=== PATIENT | male | born 1965 | race Caucasian/White ===

== ENCOUNTER → 2019-04-02 | Outpatient (CLI) | payer OTHER ==
--- NOTE | 2019-04-02 19:34 | REP ---
MAXILLOFACIAL CT WITHOUT CONTRAST: HISTORY: Acute recurrent sinusitis. Minimal mucosal thickening is present in the maxillary and ethmoid sinuses. A retention cyst is present in the left maxillary sinus. The remaining sinuses are clear. The osteomeatal units are patent. The middle and inferior nasal turbinates are partially paradoxical. There is very minimal deviation of the nasal septum to the right anteriorly and to the left posteriorly. A small spur is present arising from the right side of the nasal septum. The cribriform plate, medial dallas of the orbits and optic canals are intact. There is aeration of the anterior clinoid processes. The carotid canals form a segment of the posterolateral dallas of the sphenoid sinus. The left sphenoid sinus septum inserts into the left internal carotid canal wall. IMPRESSION:1. Sinus mucosal thickening as described above. 2. Left maxillary sinus retention cyst. Electronically Signed by Mike Flores MD 04/03/2019 07:58 A
== END ==
LOC: M RAD 16:23
PROVIDERS: ATTEND Specialist
DX: J01.01 Acute recurrent maxillary sinusitis (principal); J34.2 Deviated nasal septum

== ENCOUNTER → 2020-05-04 | Outpatient (CLI) | payer OTHER ==
--- NOTE | 2020-05-04 17:04 | REP ---
REASON: History of pleural effusions. I have no priors for comparison. Priors from an outside institution have not been made available for review. There is left CP angle blunting. There are multiple left lung nodules and a few right lung nodules. For the most part, they appear calcified. The right pleural angles is sharp. The heart is not enlarged. The osseous structures are within normal limits. IMPRESSION: Left pleural effusion, etiology uncertain. Multiple lung nodules, etiology uncertain. Followup with chest CT as recommended. Electronically Signed by Dick Miller DO 05/04/2020 07:10 P
== END ==
LOC: M RAD 13:22
PROVIDERS: ATTEND Internal Medicine Pulmonary Disease
DX: J90 Pleural effusion, not elsewhere classified (principal); R91.8 Other nonspecific abnormal finding of lung field

== ENCOUNTER → 2020-05-28 | Outpatient (CLI) | payer OTHER ==
--- NOTE | 2020-05-28 17:39 | REP ---
REASON: Followup pleural effusion. COMPARISON: 05/04/2020 Once again, there is left lower lobe opacity blunting the left CP angle. This has increased slightly compared to the prior exam. There are multiple pulmonary nodules scattered throughout the lung parker, status quo. The cardiomediastinal silhouette is unchanged. The osseous structures are unchanged. IMPRESSION: Evidence of slightly increased left pleural effusion and other findings as described above. Electronically Signed by Dick Miller DO 05/29/2020 11:21 A
== END ==
LOC: M RAD 14:22
PROVIDERS: ATTEND Nurse Practitioner Family
DX: J90 Pleural effusion, not elsewhere classified (principal); R91.8 Other nonspecific abnormal finding of lung field

== ENCOUNTER → 2020-09-09 | Outpatient (CLI) | payer OTHER ==
--- NOTE | 2020-09-10 05:26 | REPPI ---
INDICATION: J90 PLEURAL EFFUSION, NOT ELSEWHERE CLASSIFIED COMPARISON: 05/28/2020 TECHNIQUE: PA and lateral. FINDINGS: Opacity at the left base remains stable and may represent chronic pleural changes versus small pleural effusion. Clinical correlation is required. The remainder of the lung parker are well aerated and multiple scattered small nodules (left greater than right) are again noted which may reflect calcified and noncalcified granulomatous changes. Mediastinum and cardiac silhouette are normal. No pneumothorax. Skeletal structures intact. IMPRESSION: Suspected small left pleural effusion and or chronic changes along with scattered pulmonary nodules similar to prior examination. <Electronically signed by Tutu Sims > 09/10/20 [id number]
== END ==
LOC: M PLAIMG 13:02
PROVIDERS: ATTEND Internal Medicine Pulmonary Disease
DX: J90 Pleural effusion, not elsewhere classified (principal)

== ENCOUNTER → 2021-09-23 | Outpatient (CLI) | payer OTHER ==
--- NOTE | 2021-09-23 10:06 | REP ---
INDICATION: NICOTINE DEPENDENCE. COMPARISON: None. TECHNIQUE: Axial noncontrast images from the thoracic inlet to the upper abdomen using low-dose lung screening technique (LDCT). As per the protocol only lung window images were sent to the read station for interpretation. FINDINGS: There is evidence of biapical pleuroparenchymal scarring. There is an irregular somewhat spiculated appearing pleural base nodule in the left upper lobe which measures 1.9 cm. This may be causing pleural tenting. There is irregular pleural thickening throughout the left lower lung field. A small loculated pleural effusion on the left cannot be ruled out. There are numerous calcified granulomas. Grossly, the mediastinum and pulmonary angelica appear to be within normal limits. Grossly, the imaged upper abdomen and imaged osseous structures appear to be within normal limits. IMPRESSION: Abnormal left lung findings as described above. According to the revised Fleischner society criteria diagnostic contrast-enhanced CT examination of the chest is recommended since are no priors for comparison. <Electronically signed by Dick Miller > 09/23/21 1002
== END ==
LOC: M RAD 09:37
PROVIDERS: ATTEND Internal Medicine Pulmonary Disease
DX: R91.8 Other nonspecific abnormal finding of lung field (principal); F17.218 Nicotine dependence, cigarettes, with other nicotine-induced disorders

== ENCOUNTER → 2022-10-17 | Outpatient (CLI) | payer OTHER | LOC: M RAD 14:32 | PROVIDERS: ATTEND Internal Medicine Pulmonary Disease | DX: Z12.2 Encounter for screening for malignant neoplasm of respiratory organs (principal); F17.218 Nicotine dependence, cigarettes, with other nicotine-induced disorders ==

== ENCOUNTER → 2022-10-20 | Outpatient (REF) | payer OTHER | LOC: M LAB REF 16:50 | PROVIDERS: ATTEND Orthopaedic Surgery | DX: R22.32 Localized swelling, mass and lump, left upper limb (principal); L92.9 Granulomatous disorder of the skin and subcutaneous tissue, unspecified ==

== ENCOUNTER → 2022-11-23 | Outpatient (CLI) | payer OTHER ==
[~2022-11-23] MED LIST: ACTE20IN SC; ALBU90AE IH; ARAV20TA PO; EQL50TAB2 PO; FLOM0.4C39 PO; FLON1SPR; FOLI1TAB11 PO; PANT20TA6 PO; TREL1AER PO
[2022-11-23 11:52] LABS: BASO # 0.1 10^3/uL (0.0-0.2); BASO % 0.9 % (0.0-1.0); EOS # 0.3 10^3/uL (0.0-0.5); HEMATOCRIT 47.6 % (42.0-52.0); HEMOGLOBIN 15.7 g/dl (13.5-17.5); LYMPH # 1.4 10^3/uL (1.5-5.0); LYMPH % 24.3 % (24.0-44.0); MEAN CORPUSCULAR HEMOGLOBIN 32.3 pg (27.0-33.0); MEAN CORPUSCULAR VOLUME 97.9 fl (80.0-96.0); MONO # 0.8 10^3/uL (0.0-0.8); MONO % 14.7 % (2.0-8.0); NEUTROPHILS # 3.1 10^3/uL (1.5-8.5); NEUTROPHILS % 54.9 % (36.0-66.0); PLATELET COUNT, AUTOMATED 274 10^3/uL (150-450); RED BLOOD COUNT 4.86 10^6/uL (4.30-6.10); WHITE BLOOD COUNT 5.6 10^3/uL (4.0-10.0)
[2022-11-23 12:04] LABS: INR 0.86; PROTHROMBIN TIME 11.9 SECONDS (12.5-14.5)
[2022-11-23 12:05] LABS: PARTIAL THROMBOPLASTIN TIME 27.5 SECONDS (24.8-34.2)
[2022-11-23 12:18] LABS: LDH LACTATE DEHYDROGENASE 197 U/L (120-246)
[2022-11-23 12:20] LABS: ALBUMIN 3.4 G/DL (3.2-5.2); ALKALINE PHOSPHATASE 148 U/L (46-116); ALT/SGPT 19 U/L (7.0-40); AST/SGOT 19 U/L (<34); BILIRUBIN,TOTAL 0.3 MG/DL (0.3-1.2); BLOOD UREA NITROGEN 12 MG/DL (9-23); CALCIUM LEVEL 8.7 MG/DL (8.5-10.1); CARBON DIOXIDE LEVEL 28 MMOL/L (20-31); CHLORIDE LEVEL 106 MMOL/L (98-107); CREATININE FOR GFR 0.78 MG/DL (0.70-1.30); GLOMERULAR FILTRATION RATE > 60.0 (>56); GLUCOSE, FASTING 89 MG/DL (60-100); POTASSIUM SERUM 4.2 MMOL/L (3.5-5.1); SODIUM LEVEL 140 MMOL/L (136-145); TOTAL PROTEIN 6.5 G/DL (5.7-8.2)
[2022-11-23 13:26] LABS: PH BODY FLUID 7.469 UNITS (NOT ESTABLISHED); SOURCE, BODY FLUID pH PLEURAL
[2022-11-23 13:39] LABS: SOURCE, BODY FLUID ALBUMIN PLEURAL
[2022-11-23 13:41] LABS: APPEARANCE, BODY FLUID CLOUDY (CLEAR); PLEURAL FL COLOR YELLOW (COLORLESS); SOURCE, BODY FLUID PLEURAL
[2022-11-23 13:43] LABS: SOURCE, BODY FLUID GLUCOSE PLEURAL
[2022-11-23 13:45] LABS: LDH, BODY FLUID 378 U/L (NOT ESTABLISHED); SOURCE, BODY FLUID LDH PLEURAL
[2022-11-23 13:46] LABS: AMYLASE, BODY FLUID 34 U/L (NOT ESTABLISHED); SOURCE, BODY FLUID AMYLASE PLEURAL; SOURCE, BODY FLUID TOT PROTEIN PLEURAL; TOTAL PROTEIN, BODY FLUID 3.3 G/DL (NOT ESTABLISHED)
[2022-11-23 14:00] VITALS: BP 116/71
== END ==
LOC: M IRPRO 10:55
PROVIDERS: ATTEND Internal Medicine Pulmonary Disease
DX: J90 Pleural effusion, not elsewhere classified (principal); J95.811 Postprocedural pneumothorax

== ENCOUNTER → 2022-12-19 | Outpatient (CLI) | payer OTHER | LOC: M PLARAD 10:26 | PROVIDERS: ATTEND Internal Medicine Pulmonary Disease | DX: R91.8 Other nonspecific abnormal finding of lung field (principal) | CPT/HCPCS: 78815; A9552 ==

== ENCOUNTER → 2023-01-23 | Outpatient (CLI) | payer OTHER | LOC: M RAD 14:28 | PROVIDERS: ATTEND Internal Medicine Pulmonary Disease | DX: J90 Pleural effusion, not elsewhere classified (principal) ==

== ENCOUNTER → 2023-02-07 | Outpatient (CLI) | payer OTHER | LOC: M PLAIMG 13:54 | PROVIDERS: ATTEND Internal Medicine Pulmonary Disease | DX: J90 Pleural effusion, not elsewhere classified (principal) ==

== ENCOUNTER → 2023-03-01 | Outpatient (CLI) | payer OTHER ==
[2023-03-01 12:32] LABS: BASO # 0.1 10^3/uL (0.0-0.2); BASO % 1.2 % (0.0-1.0); EOS # 0.3 10^3/uL (0.0-0.5); HEMATOCRIT 47.5 % (42.0-52.0); HEMOGLOBIN 15.7 g/dl (13.5-17.5); LYMPH # 1.5 10^3/uL (1.5-5.0); LYMPH % 22.6 % (24.0-44.0); MEAN CORPUSCULAR HEMOGLOBIN 31.8 pg (27.0-33.0); MEAN CORPUSCULAR HGB CONC 33.1 g/dl (32.0-36.5); MEAN CORPUSCULAR VOLUME 96.3 fl (80.0-96.0); MONO # 0.8 10^3/uL (0.0-0.8); MONO % 12.4 % (2.0-8.0); NEUTROPHILS % 59.7 % (36.0-66.0); PLATELET COUNT, AUTOMATED 229 10^3/uL (150-450); RED BLOOD COUNT 4.93 10^6/uL (4.30-6.10); WHITE BLOOD COUNT 6.7 10^3/uL (4.0-10.0)
[2023-03-01 12:40] LABS: INR 0.91; PROTHROMBIN TIME 12.5 SECONDS (12.5-14.5)
[2023-03-01 12:41] LABS: PARTIAL THROMBOPLASTIN TIME 25.8 SECONDS (24.8-34.2)
[2023-03-01 13:00] LABS: LDH LACTATE DEHYDROGENASE 193 U/L (120-246)
[2023-03-01 13:02] LABS: ALBUMIN 3.4 G/DL (3.2-5.2); ALKALINE PHOSPHATASE 158 U/L (46-116); ALT/SGPT 15 U/L (7.0-40); AST/SGOT 19 U/L (<34); BILIRUBIN,TOTAL 0.5 MG/DL (0.3-1.2); BLOOD UREA NITROGEN 9 MG/DL (9-23); CALCIUM LEVEL 8.7 MG/DL (8.5-10.1); CARBON DIOXIDE LEVEL 24 MMOL/L (20-31); CHLORIDE LEVEL 110 MMOL/L (98-107); CREATININE FOR GFR 0.77 MG/DL (0.70-1.30); GLOMERULAR FILTRATION RATE > 60.0 (>56); GLUCOSE, FASTING 88 MG/DL (60-100); POTASSIUM SERUM 4.1 MMOL/L (3.5-5.1); SODIUM LEVEL 140 MMOL/L (136-145); TOTAL PROTEIN 6.6 G/DL (5.7-8.2)
[2023-03-01 15:30] LABS: APPEARANCE, BODY FLUID HAZY (CLEAR); PLEURAL FL COLOR RED (COLORLESS); SOURCE, BODY FLUID PLEURAL
[2023-03-01 15:45] VITALS: BP 132/77
[2023-03-01 16:08] LABS: PH BODY FLUID 7.388 UNITS (NOT ESTABLISHED); SOURCE, BODY FLUID pH PLEURAL
[2023-03-01 16:25] LABS: SOURCE, BODY FLUID ALBUMIN PLEURAL
[2023-03-01 16:30] LABS: SOURCE, BODY FLUID GLUCOSE PLEURAL; SOURCE, BODY FLUID TRIG PLEURAL; TRIGLYCERIDE, BODY FLUID 43 MG/DL (NOT ESTABLISHED)
[2023-03-01 16:31] LABS: AMYLASE, BODY FLUID 39 U/L (NOT ESTABLISHED); LDH, BODY FLUID 290 U/L (NOT ESTABLISHED); SOURCE, BODY FLUID AMYLASE PLEURAL; SOURCE, BODY FLUID LDH PLEURAL
[2023-03-01 16:32] LABS: CHOLESTEROL, BODY FLUID 65 MG/DL (NOT ESTABLISHED); SOURCE, BODY FLUID CHOL PLEURAL; SOURCE, BODY FLUID TOT PROTEIN PLEURAL; TOTAL PROTEIN, BODY FLUID 3.2 G/DL (NOT ESTABLISHED)
== END ==
LOC: M IRPRO 11:55
PROVIDERS: ATTEND Internal Medicine Pulmonary Disease
DX: J90 Pleural effusion, not elsewhere classified (principal)

== ENCOUNTER → 2023-04-05 | Outpatient (CLI) | payer OTHER | LOC: M RAD 14:11 | PROVIDERS: ATTEND Internal Medicine Pulmonary Disease | DX: J90 Pleural effusion, not elsewhere classified (principal) ==

== ENCOUNTER → 2023-05-26 | Outpatient (CLI) | payer OTHER ==
[~2023-05-26] MED LIST changes: +ISOVUE-370 76% 100ML VIAL As Ordered ONE
[2023-05-26 07:56] LABS: BASO # 0.1 10^3/uL (0.0-0.2); BASO % 0.8 % (0.0-1.0); EOS # 0.3 10^3/uL (0.0-0.5); EOS % 3.3 % (0.0-3.0); HEMATOCRIT 48.6 % (42.0-52.0); HEMOGLOBIN 16.5 g/dl (13.5-17.5); LYMPH # 1.2 10^3/uL (1.5-5.0); LYMPH % 16.3 % (24.0-44.0); MEAN CORPUSCULAR HEMOGLOBIN 32.6 pg (27.0-33.0); MONO # 1.3 10^3/uL (0.0-0.8); MONO % 17.2 % (2.0-8.0); NEUTROPHILS # 4.7 10^3/uL (1.5-8.5); NEUTROPHILS % 62.1 % (36.0-66.0); PLATELET COUNT, AUTOMATED 308 10^3/uL (150-450); RED BLOOD COUNT 5.06 10^6/uL (4.30-6.10); WHITE BLOOD COUNT 7.6 10^3/uL (4.0-10.0)
[2023-05-26 08:07] LABS: INR 0.88; PROTHROMBIN TIME 12.1 SECONDS (12.5-14.5)
[2023-05-26 08:28] LABS: BLOOD UREA NITROGEN 11 MG/DL (9-23); CALCIUM LEVEL 9.1 MG/DL (8.5-10.1); CARBON DIOXIDE LEVEL 30 MMOL/L (20-31); CHLORIDE LEVEL 108 MMOL/L (98-107); CREATININE FOR GFR 0.83 MG/DL (0.70-1.30); GLOMERULAR FILTRATION RATE > 60.0 (>56); GLUCOSE, FASTING 86 MG/DL (60-100); POTASSIUM SERUM 4.4 MMOL/L (3.5-5.1); SODIUM LEVEL 142 MMOL/L (136-145)
== END ==
LOC: M RAD 07:25
PROVIDERS: ATTEND Thoracic Surgery (Cardiothoracic Vascular Surgery)
DX: J90 Pleural effusion, not elsewhere classified (principal)
CPT/HCPCS: 36415; 71260; 80048; 85025; 85610; Q9967

== ENCOUNTER → 2024-02-07 | Outpatient (CLI) | payer OTHER ==
[~2024-02-07] MED LIST changes: -ISOVUE-370 76% 100ML VIAL As Ordered ONE
== END ==
LOC: M RAD 08:34
PROVIDERS: ATTEND Internal Medicine Pulmonary Disease
DX: R91.8 Other nonspecific abnormal finding of lung field (principal)

== ENCOUNTER → 2025-02-27 | Outpatient (CLI) | payer OTHER ==
[~2025-02-27] MED LIST changes: -ALBU90AE IH; +ALBU90AE2 IH
== END ==
LOC: M RAD 08:10
PROVIDERS: ATTEND Internal Medicine Pulmonary Disease
DX: Z12.2 Encounter for screening for malignant neoplasm of respiratory organs (principal); F17.218 Nicotine dependence, cigarettes, with other nicotine-induced disorders; R91.8 Other nonspecific abnormal finding of lung field

== ENCOUNTER → 2025-03-12 | Outpatient (REF) | payer OTHER ==
[~2025-03-12] MED LIST changes: -FLOM0.4C39 PO; +TAMS-18 PO
== END ==
LOC: M LAB REF 16:52
PROVIDERS: ATTEND Internal Medicine Pulmonary Disease
DX: J44.1 Chronic obstructive pulmonary disease with (acute) exacerbation (principal)

== ENCOUNTER → 2025-09-23 | Outpatient (CLI) | payer OTHER ==
[~2025-09-23] MED LIST changes: -EQL50TAB2 PO; +VITA1TAB82 PO
== END ==
LOC: M RAD 15:26
PROVIDERS: ATTEND Internal Medicine Pulmonary Disease
DX: R91.8 Other nonspecific abnormal finding of lung field (principal); J43.9 Emphysema, unspecified; J98.4 Other disorders of lung; J98.11 Atelectasis